=== PATIENT | female | born 1965 | race Caucasian/White ===

== ENCOUNTER 2016-06-09 13:34 | Emergency (ER) | payer OTHER | END 2016-06-09 16:20 | disposition home or self-care (01) | LOC: FER 13:34 | DX: M54.5 Low back pain (principal); E11.9 Type 2 diabetes mellitus without complications; Z79.84 Long term (current) use of oral hypoglycemic drugs; Z98.890 Other specified postprocedural states | CPT/HCPCS: J1885 ==

== ENCOUNTER 2020-07-28 04:37 | Emergency (ER) | payer OTHER ==
[2020-07-28 05:07] LABS: BASOPHIL 0.4 % (0-2); EOSINOPHIL 1.9 % (0-5); HCT 40.7 % (37.0-47.0); HGB 13.5 g/dl (12.5-16.0); MCH 28.8 pg (25.0-31.0); MCHC 33.2 g/dL (32.0-36.0); MCV 86.8 fL (78.0-100.0); MPV 9.8 fL (6.0-9.5); NEUTROPHIL 62.3 % (41-80); NRBC 0; PLT 264 K/uL (150-400); RBC 4.69 M/uL (4.20-5.40); RDW 13.5 % (11.5-14.0)
[2020-07-28 05:25] LABS: BILIRUBIN - DIRECT 0.1 mg/dL (0.00-0.20); BILIRUBIN - TOTAL 0.4 mg/dL (0.2-1.0); BUN/CREAT RATIO (CALC) 21.5 RATIO; CREATININE 0.65 mg/dL (0.51-0.95); GLOBULIN (CALCULATION) 3.4 g/dL; POTASSIUM 3.3 mmol/L (3.5-5.1); TOTAL PROTEIN 7.4 g/dL (6.4-8.2)
[2020-07-28 05:32] LABS: BILIRUBIN NEGATIVE (NEGATIVE); BLOOD NEGATIVE Ery/uL (NEGATIVE); CLARITY CLEAR (CLEAR); COLOR YELLOW (YELLOW); GLUCOSE (U) 3+ mg/dL (NORMAL); LEUKOCYTES NEGATIVE Leu/uL (NEGATIVE); NITRITE NEGATIVE (NEGATIVE); PROTEIN NEGATIVE (NEGATIVE); SPECIFIC GRAVITY 1.025 (1.001-1.030); UROBILINOGEN 0.2 mg/dL (0.2-1.0)
[2020-07-28] MEDS ORDERED: ONDANSETRON ODT4 MG PO (06:58)
== END 2020-07-28 06:59 | disposition home or self-care (01) ==
LOC: FER 04:37
PROVIDERS: Student in an Organized Health Care Education/Training Program
DX: E87.6 Hypokalemia (principal); E11.9 Type 2 diabetes mellitus without complications; I49.8 Other specified cardiac arrhythmias; Z79.4 Long term (current) use of insulin
CPT/HCPCS: 36415; 71045; 80048; 80076; 81003; 84484; 85025; 93005

== ENCOUNTER → 2021-01-29 | Day surgery (SDC) | payer OTHER ==
[~2021-01-29] VITALS: Ht 167.6 cm; Wt 79.4 kg
[~2021-01-29] MED LIST: BUSPIRONE HCL7.5 MG PO; FARXIGA10 MG PO; LANTUS100 UNIT/1 SC; LIPITOR20 MG PO; ONDANSETRON ODT4 MG PO; PROTONIX 40MG T40 MG PO; TRULICITY0.75 MG/0. SC; VALSARTAN-HCTZ1 EACH PO; VITAMIN D21250 MCG PO
[2021-01-29 13:27] LABS: BUN/CREAT RATIO (CALC) 11.8 RATIO; CREATININE 0.68 mg/dL (0.51-0.95); POTASSIUM 3.5 mmol/L (3.5-5.1)
== END | disposition home or self-care (01) ==
LOC: FAS 11:46
PROVIDERS: Surgery
DX: K31.9 Disease of stomach and duodenum, unspecified (principal); R19.4 Change in bowel habit; K29.70 Gastritis, unspecified, without bleeding; E11.65 Type 2 diabetes mellitus with hyperglycemia; R13.10 Dysphagia, unspecified; R07.9 Chest pain, unspecified; R35.81 Nocturnal polyuria; K21.9 Gastro-esophageal reflux disease without esophagitis; E27.8 Other specified disorders of adrenal gland; F41.9 Anxiety disorder, unspecified; H69.80 Other specified disorders of Eustachian tube, unspecified ear; I10 Essential (primary) hypertension; E78.5 Hyperlipidemia, unspecified; E55.9 Vitamin D deficiency, unspecified; Z79.4 Long term (current) use of insulin; Z79.899 Other long term (current) drug therapy; Z90.722 Acquired absence of ovaries, bilateral; Z90.710 Acquired absence of both cervix and uterus; Z77.22 Contact with and (suspected) exposure to environmental tobacco smoke (acute) (chronic)
CPT/HCPCS: 36415; 80048; 82150; 83690; J1610; J2250; J7120